=== PATIENT | female | born 1985 | race Caucasian/White ===

== ENCOUNTER → 2017-06-30 | Outpatient (CLI) | payer OTHER ==
[~2017-06-30] MED LIST: NIFE20CA PO
--- NOTE | 2017-06-30 16:50 | REP ---
LUMBAR SPINE, THREE VIEWS: HISTORY: Contusion. There is no acute fracture or subluxation. The L4-5 intervertebral disc is decreased in height consistent with disc degeneration. IMPRESSION:Degenerative change as described above. Signed by Carmelo Moulton MD 06/30/2017 04:59 P
--- NOTE | 2017-06-30 16:51 | REP ---
UNILATERAL RIGHT RIBS, PA CHEST: HISTORY: Contusion. COMPARISON: 08/16/2012 The lungs are clear. The heart is normal in size. The pulmonary vasculature is normal in appearance. The bony structure is intact. IMPRESSION: No acute disease. Signed by Carmelo Moulton MD 06/30/2017 04:59 P
== END ==
LOC: M WUC 14:58
PROVIDERS: ATTEND Physician Assistant
DX: S20.211A Contusion of right front wall of thorax, initial encounter (principal); X58.XXXA Exposure to other specified factors, initial encounter; Y93.9 Activity, unspecified; Y92.9 Unspecified place or not applicable; Y99.8 Other external cause status

== ENCOUNTER 2017-08-12 04:00 | Inpatient (IN) | payer OTHER ==
[2017-08-12] VITALS (7 sets, daily range): BP systolic 92–135; BP diastolic 58–91
[~2017-08-12] VITALS: Ht 160 cm; Wt 91.1 kg
[2017-08-12] MEDS ORDERED: LISI10TA4 PO (04:09)
[2017-08-12] MEDS ORDERED: NS 1,000 ML IV ONE ×2 (04:15→05:00)
[2017-08-12 04:21] LABS: BASO % 0.1 % (0.0-1.0); EOS # 0.1 10^3/uL (0.0-0.50); EOS % 0.5 % (0.0-3.0); IMMATURE GRANULOCYTE % 0.5 % (0-0); LYMPH # 0.4 10^3/uL (1.5-4.5); LYMPH % 3.8 % (24.0-44.0); MEAN CORPUSCULAR HEMOGLOBIN 29.5 pg (27.0-33.0); MEAN CORPUSCULAR VOLUME 86.6 fl (80.0-96.0); MONO # 0.5 10^3/uL (0.0-0.8); MONO % 5.5 % (0.0-5.0); NEUTROPHILS # 8.5 10^3/uL (1.8-7.7); NEUTROPHILS % 89.6 % (36.0-66.0); PLATELET COUNT, AUTOMATED 196 10^3/uL (150-450); RED CELL DISTRIBUTION WIDTH 12.7 % (11.5-14.5); WHITE BLOOD COUNT 9.5 10^3/uL (4.0-10.0)
[2017-08-12 04:48] LABS: CONTROL LINE HCG INT CTR LINE PRESENT
[2017-08-12 04:57] LABS: ALBUMIN 3.1 GM/DL (3.2-5.2); ALBUMIN/GLOBULIN RATIO 0.67 (1.00-1.93); ALKALINE PHOSPHATASE 79 U/L (45-117); ALT/SGPT 26 U/L (12-78); ANION GAP 11 MEQ/L (8-16); AST/SGOT 16 U/L (7-37); BILIRUBIN,DIRECT < 0.1 MG/DL (0.0-0.2); BILIRUBIN,TOTAL 0.3 MG/DL (0.2-1.0); BLOOD UREA NITROGEN 17 MG/DL (7-18); CARBON DIOXIDE LEVEL 19 MEQ/L (21-32); CHLORIDE LEVEL 111 MEQ/L (98-107); CREATININE FOR GFR 1.15 MG/DL (0.55-1.02); GLOMERULAR FILTRATION RATE 57.5 (>60); GLUCOSE, FASTING 191 MG/DL (70-105); POTASSIUM SERUM 3.6 MEQ/L (3.5-5.1); SODIUM LEVEL 141 MEQ/L (136-145); TOTAL PROTEIN 7.7 GM/DL (6.4-8.2)
[2017-08-12] MEDS ORDERED: METOCLOPRAMIDE INJ 10MG/2ML VIAL (J2765) IV ONE (05:00)
[2017-08-12] MEDS ORDERED: MORPHINE 2 MG/ML 1ML SYRINGE IV ONE (05:15)
[2017-08-12 05:36] LABS: INR 0.91
[2017-08-12] MEDS ORDERED: STRA10CA PO (05:48)
[2017-08-12] MEDS ORDERED: IMIPENEM/CILASTATIN 500 MG in D5W MINI-BAG PLUS 100 ML IV ONE (06:00)
[2017-08-12] MEDS ORDERED: metroNIDAZOLE 750 MG in APPROPRIATE DILUENT 1 EA IV ONE (06:00)
[2017-08-12] MEDS ORDERED: MORPHINE 2 MG/ML 1ML SYRINGE IV PRN (06:15)
[2017-08-12] MEDS ORDERED: ISOVUE-370 76% 100ML VIAL (Q9967) As Ordered ONE (06:48)
--- NOTE | 2017-08-12 07:09 | HPE ---
DATE OF ADMISSION: 08/12/2017 The patient, Kasey Negron, is a 32-year-old female. Patient comes in with a chief complaint of abdominal pain and severe diarrhea. Patient with a previous medial history of Casper-Romberg syndrome. Patient also with hypertension on lisinopril. Will be holding lisinopril at this time. The patient comes in with complaint of severe abdominal pain and diarrhea beginning Monday at about 12 as it became Monday morning. Patient notes that she did have hamburgers for dinner. The patient did have one sick contact. Her daughter also had some abdominal pain and diarrhea, but nothing on the magnitude of what the patient is having right now. The patient states that she has been having constant diarrhea, abdominal pain 10/10, nausea, vomiting. As per ED sign off she was incontinent in the ED and has been cleaned up since then with clearly bloody stools. Hemoglobin and hematocrit were found to be extremely low, patient being typed and screened, getting fluid and will get packed cells. REVIEW OF SYSTEMS: Patient without any other acute complaints other than what was noted in the history of present illness. ALLERGIES: Patient with no known drug allergies. Patient with no known significant family history. Patient does not smoke, drink or use drugs. Patient does not engage in anal sex and has one partner only. Patient's physical exam, see addendum. PHYSICAL EXAMINATION: The patient was in extreme discomfort when I came in to see her. The patient was alert and oriented times three, in petal position secondary to discomfort. The patient's temperature was 97.5, pulse 111, respiratory rate 20, blood pressure 109/70, pulse oximetry was 97 on room air. The patient is orthostatics positive from lying to sitting, as per nursing staff. The patient is alert and oriented times three. Patient with good inspiratory and expiratory effort. S1, S2 with tachycardia. ENT exam shows discolored tongue, brownish green in color. Extraocular muscles intact. Pupils equal, round and reactive to light and accommodation. Grossly normal hearing. The patient's head is normocephalic, however there is asymmetry of the face consistent with Casper-Romberg syndrome. The patient's cranial nerve II-XII cannot be done fully, patient is in extreme discomfort. Abdomen is tender to palpation superficially on all quadrants. Patient even tender on her abdomen with palpation of the flanks. Patient with good strength, 5/5 in all four major extremities. No meningeal signs present. ASSESSMENT/PLAN: Patient is a 32-year-old female with what appears to be infectious diarrhea secondary to unknown cause. Patient meeting severe sepsis criteria. Patient also with what appears to be severe GI hemorrhage. IV antibiotics began in the ED Flagyl and imipenem, will continue that. Patient typed, screened and crossed, 2 units ordered. Patient to be transfused. Patient to be sent to the ICU. Patient to go to CT for exam. Complete gastrointestinal (GI) panel sent. Continue IV fluids. Pain control with morphine. Deep vein thrombosis (DVT) prophylaxis with IPCs. GI prophylaxis with IV proton pump inhibitors (PPI) at this time. GI to be contacted for surgery based on CT results and GI panel. Given the severe nature of the patient's symptoms, I believe the patient most likely to be here for greater than two midnights. I first saw the patient 08/12/2017.
--- NOTE | 2017-08-12 08:00 | REPUSA ---
CLINICAL HISTORY: Abdominal pain. TECHNIQUE: Multiple axial, sagittal and coronal CT images were obtained through the abdomen and pelvi s after administration of intravenous contrast material. COMMENTS: Fluid filled bowels. The liver is of uniform attenuation without mass or defect. There is no intra or extrahepatic biliary ductal dilatation. The spleen is normal. The gallbladder is within normal limits. The pancreas is of normal contour and attenuation characteristics. There is no evidence of adrenal mass. Both kidneys demonstrate prompt and equal nephrograms. The kidneys are normal in size, shape and conf iguration. There is no evidence of renal or ureteral mass. No renal or ureteral calculi are identifie d. There is no hydroureter or hydronephrosis. No evidence for appendicitis. There is no bowel wall thickening. No evidence for small or large claudia l obstruction. There is no evidence of abdominal ascites or lymphadenopathy. There is no evidence of intrinsic or extrinsic bladder mass. There is no pelvic ascites or lymphadeno reginaldo. Images of the lung bases show no evidence of pleural or parenchymal mass. There are no pleural effusi ons. The bony structures are free of lytic or blastic lesions. Multilevel degenerative changes are seen in volving the thoracolumbar spine. Scattered calcifications are seen involving the aorta and major bran ches compatible with atherosclerosis. IMPRESSION: Fluid filled bowels. Enteritis/ileus. Uncomplicated diverticulosis. Thank you for your kind referral of this patient.
[2017-08-12] MEDS ORDERED: LISINOPRIL 10 MG TAB PO SCH (09:00)
[2017-08-12] MEDS: PANTOPRAZOLE 40MG INJ (PROTONIX) (C9113) IV SCH (09:52)
[2017-08-12] MEDS ORDERED: ACETAMINOPHEN TAB 650MG DOSE (2X325MG) PO SCH (10:35)
--- NOTE | 2017-08-12 10:52 | IPNPDOC ---
Subjective Date Seen The patient was seen on 08/12/17. Subjective Chief Complaint/HPI The patient is a 32-year-old female admitted with a reason for visit of Acute Hemorrhagic Enterocolitis. General: Reports: Fatigue, Malaise, Denies: Chills, Night Sweats, Normal Appetite Constitutional: Reports: Weakness, Fatigue, Lethargy, Denies: Chills, Fever, Malaise, Night Sweats, Weight Loss Eyes: Denies: Pain ENT: Denies: Head Aches Skin: Denies: Rash, Lesions, Jaundice, Bruising, Itching, Dry, Breakdown Pulmonary: Denies: Dyspnea, Cough Cardiovascular: Reports: Lt Headedness, Denies: Chest Pain, Palpitations, Orthopnea, Paroxysmal Noc. Dyspnea, Edema Gastrointestinal: Reports: Abdominal Pain, Denies: Nausea, Vomiting, Diarrhea, Constipation, Melena, Hematochezia Genitourinary: Denies: Dysuria, Frequency, Incontinence Hematologic: Denies: Bruising Neurological: Reports: Weakness, Denies: Numbness, Incoordination, Change in speech, Confusion Psych: Reports: Mood Normal Objective Physical Examination General Exam: Positive: Alert, Cooperative, Mild Distress Eye Exam: Positive: Conjunctiva & lids normal, EOMI, Negative: Sclera icteric ENT Exam: Positive: Mucous membr. moist/pink, Pharynx Normal, Nares Patent Neck Exam: Positive: Supple Chest Exam: Positive: Clear to auscultation, Normal air movement, Negative: Rales, Rhonchi, Wheezing Heart Exam: Positive: Rate Normal, Normal S1, Normal S2, Negative: Tachycardic, Bradycardic, Gallops, Murmurs, Rubs Telemetry: Positive: No significant arrhythmia Abdomen Exam: Positive: Normal bowel sounds, Soft, Tenderness (RLQ), Negative: Hepatospenomegaly Extremity Exam: Positive: Normal pulses, Negative: Clubbing, Edema, Tenderness, Swelling Neuro Exam: Positive: Normal Speech Psych Exam: Positive: Mental status NL Assessment /Plan Assessment Assessment and Plan: This is a 32-year-old previously well female who presented to the emergency department with uncontrollable nausea, vomiting, diarrhea and diffuse abdominal pain. 1. Abdominal pain -CT abdomen and pelvis showed fluid-filled bowels, enteritis/ileus helicis. -Patient did receive morphine for the pain this morning, states tylenol would be better for her as she takes this for her menstrual cramps at home, this is reasonable and will schedule Tylenol 650 mg PO QD. The pt thinks her abdomen discomfort may be from her menstrual cycle, which just started right before she presented to the hospital. Her CT did show some enteritis and diverticulosis, which also could account for the discomfort. -She did have a hamburger last night before presentation, and her daughters also had nausea and a "stomach bug", will send GI panel along with studies to evaluate for shiga and e.coli -On physical exam she did not have much abdominal tenderness or discomfort, some minimal discomfort in the right lower quadrant with deep palpitation, the patient thinks that this could also be menstrual cramps. -The patient has has one bowel movement today of which occult blood was positive , it was noted to be soft - she has since stopped vomiting since presentation, states her nausea has been improved since receiving Zofran -She is currently receiving 1 unit of packed red blood cells, will repeat H&H one hour after first transfusion, she will receive a second unit of blood and repeat H&H one hour after this transfusion. -Patient does seem pale on physical exam however upon questioning she states that she is "" always very pale "" and that this is just her "" genetics "" -She does state that she is a bit lightheaded upon standing, this usually resolves within a few seconds. Can perform orthostatics. -Blood pressure stable at 135/91, patient is mildly tachycardic at 114 -The patient did reveal that she started her menstrual cycle last night after her nausea and vomiting began, she states that she "" has very heavy periods especially in the beginning of the cycle "", she usually saturates 5 pads per day. -10.6 was her hemoglobin in 2013 when she was last seen at this hospital, patient states her last h/h was 13/40 in April 2017, thus she is not near her baseline H/H at 8.6/25.3 -At this point in time a GI bleed has not been ruled out-spoke to GI fashion consultant sales who suggested beginning ciprofloxacin and metronidazole, she does not need additional EGD nor colonoscopy at this time, norovirus can account for blood from GI tract. -she is receiving 2 units of blood, will trend H&H, improved to 14.4/43 s/p two units. trend q6h. -vital signs appear stable at this point in time albeit slight tachycardia -We'll continue to monitor for active signs of bleeding -less likely enterohemorrhagic e. coli at this point, symptoms usually develop days after consumption of infectious meat., the patients started hours later. Also, treatment for this is supportive care. Pt will be transferred from ICU to PCU. -C/w IV protonix 2. Nausea and vomiting -It appears that this is now very well controlled with PO zofran, will c/w this regime 3. HTN -this is well controlled, agreeable to hold lisinopril at this time - 4. ADHD -c/w home atomoxetine Plan/VTE VTE Prophylaxis Ordered?: Yes VS, I&O, 24H, Fishbone Vital Signs/I&O Vital Signs Date Time Temp Pulse Resp B/P (MAP) Pulse Ox O2 Delivery O2 Flow Rate FiO2 08/12/17 09:45 100.2 98 17 135/91 (106) 96 Room Air I&O- Last 24 Hours up to 6 AM 08/13/17 06:00 Intake Total 2100 ml Output Total 500 ml Balance 1600 ml Laboratory Data 24H LABS Laboratory Tests 2 08/12/17 04:15: Immature Granulocyte % (Auto) 0.5H, White Blood Count 9.5, Red Blood Count 2.92L , Hemoglobin 8.6L, Hematocrit 25.3L, Mean Corpuscular Volume 86.6, Mean Corpuscular Hemoglobin 29.5, Mean Corpuscular Hemoglobin Concent 34.0, Red Cell Distribution Width 12.7, Platelet Count 196, Neutrophils (%) (Auto) 89.6H, Lymphocytes (%) (Auto) 3.8L, Monocytes (%) (Auto) 5.5H, Eosinophils (%) (Auto) 0.5, Basophils (%) (Auto) 0.1, Neutrophils # (Auto) 8.5H, Lymphocytes # (Auto) 0.4L, Monocytes # (Auto) 0.5, Eosinophils # (Auto) 0.1, Basophils # (Auto) 0.0, Immature Granulocyte # (Auto) 0.1H, Nucleated Red Blood Cells % (auto) 0.0, Anion Gap 11, Glomerular Filtration Rate 57.5L, Calcium Level 9.0, Aspartate Amino Transf (AST/SGOT) 16, Alanine Aminotransferase (ALT/SGPT) 26, Alkaline Phosphatase 79, Total Bilirubin 0.3, Direct Bilirubin < 0.1, Total Protein 7.7, Albumin 3.1L, Albumin/Globulin Ratio 0.67L, Lipase 290, Human Chorionic Gonadotropin, Qual NEGATIVE 08/12/17 05:19: Prothrombin Time 12.3L, Prothromb Time International Ratio 0.91, Activated Partial Thromboplast Time 25.9L, Lactic Acid Level 3.1*H 08/12/17 09:43: Lactic Acid Followup at 4 Hours 2.8*H CBC/BMP Laboratory Tests 08/12/17 04:15 Red Blood Count 2.92 L, Mean Corpuscular Volume 86.6, Mean Corpuscular Hemoglobin 29.5, Mean Corpuscular Hemoglobin Concent 34.0, Red Cell Distribution Width 12.7, Neutrophils (%) (Auto) 89.6 H, Lymphocytes (%) (Auto) 3.8 L, Monocytes (%) (Auto) 5.5 H, Eosinophils (%) (Auto) 0.5, Basophils (%) ( Auto) 0.1, Neutrophils # (Auto) 8.5 H, Lymphocytes # (Auto) 0.4 L, Monocytes # ( Auto) 0.5, Eosinophils # (Auto) 0.1, Basophils # (Auto) 0.0 Microbiology Microbiology 08/12/17 Blood Culture, Received Pending 08/12/17 Blood Culture, Received Pending 08/12/17 Stool Occult Blood (ASIYA) - Final, Complete 08/12/17 Gastrointestinal Tract Panel (PCR) - Final, Complete Norovirus GME ATTESTATION GME ATTESTATION My faculty preceptor for this patient encounter was physically present during the encounter and was fully available. All aspects of the patient interview, examination, medical decision making process, and medical care plan development were reviewed and approved by the faculty preceptor. The faculty preceptor is aware and concurs with the plan as stated in the body of this note and will attest to such by his/her cosignature. DANTE ALANIS DO Aug 12, 2017 10:52
[2017-08-12] MEDS: CIPROFLOXACIN 400 MG in APPROPRIATE DILUENT 1 EA IV SCH (14:41)
[2017-08-12] MEDS: NS 1,000 ML IV SCH ×3 (15:10→22:30)
[2017-08-12] MEDS: metroNIDAZOLE 500 MG in APPROPRIATE DILUENT 1 EA IV SCH (19:36)
[2017-08-12] MEDS: ONDANSETRON 4 MG TAB (S0181) PO PRN (19:50)
[2017-08-13] VITALS (7 sets, daily range): BP systolic 121–182; BP diastolic 71–106
[2017-08-13] MEDS: CIPROFLOXACIN 400 MG in APPROPRIATE DILUENT 1 EA IV SCH ×2 (01:38→14:23)
[2017-08-13] MEDS: NS 1,000 ML IV SCH ×3 (02:29→16:29)
[2017-08-13] MEDS: metroNIDAZOLE 500 MG in APPROPRIATE DILUENT 1 EA IV SCH ×3 (04:15→19:57)
[2017-08-13 04:38] LABS: MEAN CORPUSCULAR HEMOGLOBIN 28.9 pg (27.0-33.0); MEAN CORPUSCULAR HGB CONC 33.4 g/dl (32.0-36.5); MEAN CORPUSCULAR VOLUME 86.4 fl (80.0-96.0); PLATELET COUNT, AUTOMATED 218 10^3/uL (150-450); RED CELL DISTRIBUTION WIDTH 13.6 % (11.5-14.5); WHITE BLOOD COUNT 8.1 10^3/uL (4.0-10.0)
[2017-08-13 04:57] LABS: ANION GAP 4 MEQ/L (8-16); BLOOD UREA NITROGEN 11 MG/DL (7-18); CALCIUM LEVEL 6.8 MG/DL (8.5-10.1); CARBON DIOXIDE LEVEL 24 MEQ/L (21-32); CHLORIDE LEVEL 115 MEQ/L (98-107); CREATININE FOR GFR 0.75 MG/DL (0.55-1.02); GLOMERULAR FILTRATION RATE > 60.0 (>60); GLUCOSE, FASTING 106 MG/DL (70-105); POTASSIUM SERUM 3.3 MEQ/L (3.5-5.1); SODIUM LEVEL 143 MEQ/L (136-145)
[2017-08-13] MEDS ORDERED: POTASSIUM CHLORIDE 10 MEQ SR TABLET PO ONE (08:15)
[2017-08-13] MEDS: PANTOPRAZOLE 40MG INJ (PROTONIX) (C9113) IV SCH (08:17)
[2017-08-13] MEDS ORDERED: STRATTERA PO SCH (09:00)
[2017-08-13] MEDS: ACETAMINOPHEN TAB 650MG DOSE (2X325MG) PO PRN ×2 (09:34→16:29)
[2017-08-13] MEDS ORDERED: ACETAMINOPHEN TAB 650MG DOSE (2X325MG) PO PRN (10:35)
[2017-08-13 12:12] LABS: MEAN CORPUSCULAR HEMOGLOBIN 29.4 pg (27.0-33.0); MEAN CORPUSCULAR HGB CONC 33.4 g/dl (32.0-36.5); MEAN CORPUSCULAR VOLUME 87.9 fl (80.0-96.0); PLATELET COUNT, AUTOMATED 207 10^3/uL (150-450); RED CELL DISTRIBUTION WIDTH 13.7 % (11.5-14.5); WHITE BLOOD COUNT 7.8 10^3/uL (4.0-10.0)
[2017-08-13 14:21] LABS: FERRITIN 183 NG/ML (8-252); PERCENT SATURATION 9.7 % (13.2-45.0); TOTAL IRON BINDING CAPACITY 279 UG/DL (250-450)
--- NOTE | 2017-08-13 17:28 | IPN ---
DATE: 08/13/2017 SUBJECTIVE: The patient is seen and examined in the room today. The patient continued to complain about frequent diarrhea. She does not feel that the frequency and the severity have improved, but clinically the patient stated she is improving. Stated that the abdominal pain is improving. Nausea and vomiting are also improving. OBJECTIVE: VITAL SIGNS: Temperature is 99, pulse is 84, respiratory rate 17, blood pressure 136/85, pulse oximetry is 98% in room air. GENERAL: No sign of acute distress, alert and oriented times three. HEENT: Normocephalic, atraumatic. Extraocular motor grossly intact. CARDIOVASCULAR: Positive S1, S2, regular rate. LUNGS: Clear to auscultation bilaterally. ABDOMEN: Soft, mild discomfort to palpation. EXTREMITIES: No edema. No sign of cyanosis. LABORATORY DATA: WBC is 7.8, hemoglobin 12.1, hematocrit 36.2, platelet count is 207. Sodium is 143, potassium 3.3, chloride 115, carbon dioxide 24, BUN is 11, creatinine is 0.75, GFR greater than 60, fasting glucose 106, calcium is 6.8, iron is 27, TIBC is 279, ferritin is 183, lactate dehydrogenase is 192. ASSESSMENT AND PLAN: 1. Acute gastrointestinal (GI) bleed/noroviral infection. The patient has positive hemoccult. On the date of transfusion, the patient was found to have a hemoglobin of 8.6 which is not her baseline. The most recent blood test was performed in April of 2017 and hemoglobin was 13 with a hematocrit of 40. The patient received two packed red blood cell transfusions on 08/12/2017. Since then, we have been following the patient's hemoglobin and hematocrit. There is some minor fluctuation of the hemoglobin and hematocrit. However, there is no significant drop at this moment. The patient continues to have stable vital signs. The patient does have a concurrent menstrual period, the first day started on 08/12/2017, and based according to her baseline, usually on the first day, her period will be very heavy. GI panel was performed. The patient was positive for norovirus. Case discussed with GI specialist, Dr. Melendez. The patient's diet is advanced and the patient is started on the ciprofloxacin and Flagyl. The patient continues to receive as-needed Zofran to control the nausea and vomiting. Since admission, the patient's clinical picture has continued to improved and the patient does not require Zofran as frequently as she used to. 2. Hypertension. Blood pressure is in the satisfactory range. 3. Attention deficit hyperactivity disorder (ADHD). Previously, the patient was on Lexapro for ADHD. However, the effect was suboptimal. Therefore, the patient was recently weaned off the Lexapro. The patient has been working with an outpatient provider and plans to restart a new medication next week. 4. Deep vein thrombosis (DVT) prophylaxis. Due to possible GI bleed, the patient is not on anticoagulation. The patient has thromboembolic-deterrent stockings (TEDS) and sequential compression device.
[2017-08-13 18:28] LABS: MEAN CORPUSCULAR HEMOGLOBIN 29.9 pg (27.0-33.0); MEAN CORPUSCULAR HGB CONC 34.5 g/dl (32.0-36.5); MEAN CORPUSCULAR VOLUME 86.7 fl (80.0-96.0); PLATELET COUNT, AUTOMATED 225 10^3/uL (150-450); RED CELL DISTRIBUTION WIDTH 13.6 % (11.5-14.5); WHITE BLOOD COUNT 9.4 10^3/uL (4.0-10.0)
[2017-08-13] MEDS: ONDANSETRON 4 MG TAB (S0181) PO PRN (19:51)
[2017-08-13 23:58] LABS: MEAN CORPUSCULAR HEMOGLOBIN 29.4 pg (27.0-33.0); MEAN CORPUSCULAR HGB CONC 33.6 g/dl (32.0-36.5); MEAN CORPUSCULAR VOLUME 87.6 fl (80.0-96.0); PLATELET COUNT, AUTOMATED 196 10^3/uL (150-450); RED CELL DISTRIBUTION WIDTH 13.7 % (11.5-14.5); WHITE BLOOD COUNT 7.9 10^3/uL (4.0-10.0)
[2017-08-14] MEDS: ACETAMINOPHEN TAB 650MG DOSE (2X325MG) PO PRN ×2 (00:14→10:03)
[2017-08-14] MEDS: ONDANSETRON 4 MG TAB (S0181) PO PRN (02:02)
[2017-08-14] MEDS: NS 1,000 ML IV SCH (02:06)
[2017-08-14] MEDS: CIPROFLOXACIN 400 MG in APPROPRIATE DILUENT 1 EA IV SCH ×2 (02:07→13:43)
[2017-08-14] MEDS ORDERED: FAMOTIDINE 20 MG TAB PO ONE (03:00)
[2017-08-14 04:00] VITALS: BP 159/103
[2017-08-14] MEDS: metroNIDAZOLE 500 MG in APPROPRIATE DILUENT 1 EA IV SCH ×2 (04:41→12:18)
[2017-08-14 05:22] LABS: MEAN CORPUSCULAR HEMOGLOBIN 28.9 pg (27.0-33.0); MEAN CORPUSCULAR HGB CONC 33.5 g/dl (32.0-36.5); MEAN CORPUSCULAR VOLUME 86.3 fl (80.0-96.0); PLATELET COUNT, AUTOMATED 211 10^3/uL (150-450); RED CELL DISTRIBUTION WIDTH 13.6 % (11.5-14.5); WHITE BLOOD COUNT 7.6 10^3/uL (4.0-10.0)
[2017-08-14 05:38] LABS: ANION GAP 9 MEQ/L (8-16); BLOOD UREA NITROGEN 6 MG/DL (7-18); CALCIUM LEVEL 6.8 MG/DL (8.5-10.1); CARBON DIOXIDE LEVEL 22 MEQ/L (21-32); CHLORIDE LEVEL 114 MEQ/L (98-107); CREATININE FOR GFR 0.67 MG/DL (0.55-1.02); GLOMERULAR FILTRATION RATE > 60.0 (>60); GLUCOSE, FASTING 100 MG/DL (70-105); POTASSIUM SERUM 3.3 MEQ/L (3.5-5.1); SODIUM LEVEL 145 MEQ/L (136-145)
[2017-08-14 06:00] VITALS: BP 135/82
[2017-08-14 08:00] VITALS: BP 148/76
[2017-08-14] MEDS ORDERED: POTASSIUM CHLORIDE 10 MEQ SR TABLET PO ONE (08:00)
[2017-08-14] MEDS: PANTOPRAZOLE 40MG INJ (PROTONIX) (C9113) IV SCH (08:58)
[2017-08-14] MEDS: METOCLOPRAMIDE INJ 10MG/2ML VIAL (J2765) IV PRN ×3 (09:06→21:45)
[2017-08-14 12:10] LABS: MEAN CORPUSCULAR HEMOGLOBIN 29.2 pg (27.0-33.0); MEAN CORPUSCULAR HGB CONC 33.9 g/dl (32.0-36.5); MEAN CORPUSCULAR VOLUME 86.2 fl (80.0-96.0); PLATELET COUNT, AUTOMATED 197 10^3/uL (150-450); RED CELL DISTRIBUTION WIDTH 13.7 % (11.5-14.5); WHITE BLOOD COUNT 6.3 10^3/uL (4.0-10.0)
--- NOTE | 2017-08-14 12:13 | CR.PDOC ---
[facility] Consultation Consultation DATE OF CONSULTATION: Aug 13, 2017 at 04:00PM Primary physician/ hospitalist: Dr. Cristofer Lux. 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 Patient was admitted for further management for severe acute diarrhea and dehydration and labs showing anemia. GI consulted for the same. Patient reports the symptoms started acutely, with severe diffuse abdominal pain, vomiting and diarrhea. Patient also started having menstrual bleeding at the same time. IN ER it was unclear if patient was having blood in stools or menstrual bleeding but her labs showed low Hemoglobin so she received 2 units of PRBC. HB increase more than expected but repeat values showed stable hemoglobin at around 12. Currently patient reports her nausea , vomiting and abdominal pain improved but continues to have mild diarrhea but no blood. OFF note: patient reports sick contacts- both her children had Noro viral diarrhea. Pertinent negative GI symptoms: Patient denies early satiety or unintentional weight loss. No history of hematemesis, melena. Patient reports regular bowel movements. Review of Systems: GI: as stated above CVS: No chest pain, No palpitations, No leg swelling. RS: No Shortness of breath, No Wheezing, no cough SURGERY SCHEDULING COORDINATOR: No dizziness, No motor weakness, No sensory problems Hematology: No bruising, No gum bleeding, Musculoskeletal: No joint pain, ambulating well. Skin: No rash : No hematuria, No burning sensation of the urine ENT: No ear discharge/ pain, No dysphagia. Eyes: No photophobia. Home medications: reviewed. Antithrombotic agents None Medical h/o: As above. Surgical h/o: None on abdomen. Social h/o: Alcohol Denies , smoking Denies , IVDA/ drugs Denies . Family h/o of GI cancers - None Prior Endoscopies: None Prior GI evaluation: None in [facility]. Exam: Vitals: reviewed General: Alert and oriented x 3, not in distress HEENT: NO pallor, no icterus. Normal oropharynx, NO cervical lymph nodes. Chest: symmetric with bilateral clear air entry, CVS: S1, S2 heard, normal, no murmurs . Abdomen: non-distended, no surgical scars, soft, non-tender, no palpable masses , normal bowel sounds heard. Rectal exam: Not done as patient had already had twice examined in this admission by floor team. And patient reports no blood currently. Extremities: no pedal edema, pulses palpable. SURGERY SCHEDULING COORDINATOR: no focal motor or sensory deficits. Moves all extremities Skin: no rash. Labs: reviewed. Noted iron deficiency anemia. Impression: - Acute onset nausea, vomiting and diarrhea and Fever requiring hospitalization. And possible blood in stool initially ( unclear based on history). Recommendations: - Patient educated about the test results, possible differential diagnoses and All questions answered. - Would benefit from short course of Antibiotics for 3- 5 days. - Adequate IV hydration. - Elective work up for RANDY. - Upon discharge please give follow up appointmentin GI clinic. ( call [phone] for GI clinic appointment).. Plan of care discussed with patient and primary team. Patient verbalized understanding and agreed with the plan. Allergies Coded Allergies: Hydroxychloroquine (Verified Allergy, Mild, RASH, 08/12/17) NSAIDs (Verified Adverse Reaction, Intermediate, IGA NEPHROPATHY, 08/12/17 ) Home Medications Scheduled Atomoxetine Hydrochloride (Strattera) 10 Mg Cap, 10 MG PO DAILY, (Reported) Lisinopril (Lisinopril) 10 Mg Tab, 10 MG PO DAILY, (Reported) CRYSTAL LUNA MD Aug 13, 2017 17:01
[2017-08-14 12:16] LABS: FOLATE 9.2 NG/ML (>5.4); VITAMIN B12 LEVEL > 2000 PG/ML (247-911)
[2017-08-14 13:10] VITALS: BP 166/100
[2017-08-14] MEDS: LISINOPRIL 5 MG TAB PO SCH (14:22)
--- NOTE | 2017-08-14 15:58 | IPNPDOC ---
Text Note Date of Service The patient was seen on 08/14/17. NOTE SUBJECTIVE: The patient is seen and examined in the room today. The patient continued to complain about frequent diarrhea. She states she has recurrence of severe nausea and vomiting. PO zofran is not working for her. She notices increase facial swelling. OBJECTIVE: VITAL SIGNS: Listed below GENERAL: No sign of acute distress, alert and oriented times three. HEENT: Increased generalized swelling of face. Extraocular motor grossly intact. CARDIOVASCULAR: Positive S1, S2, regular rate. LUNGS: Clear to auscultation bilaterally. ABDOMEN: Soft, mild discomfort to palpation. EXTREMITIES: No edema. No sign of cyanosis. LABORATORY DATA: Listed below ASSESSMENT AND PLAN: 1. Noroviral infection. Continue having severe diarrhea. Has recurrence of nausea and vomiting. switch N/V medication to PRN IV zofran and reglan. Continue supportive care. Per GI recommendation, will finish 3-5 days of antibiotic treatment (cipro and flagyl). 2. Anemia. Initially acute GI bleed was suspected. The most recent blood test was performed in April of 2017 and hemoglobin was 13 with a hematocrit of 40. The patient has positive hemoccult. On the date of transfusion, the patient was found to have a hemoglobin of 8.6 which is not her baseline. The patient received two packed red blood cell transfusions on 08/12/2017. Since then, we have been following the patient's hemoglobin and hematocrit. There is some minor fluctuation of the hemoglobin and hematocrit. However, there is no significant drop at this moment. The patient continues to have stable vital signs. The patient does have a concurrent menstrual period, the first day started on 08/12/2017, and based according to her baseline, usually on the first day, her period will be very heavy. The patient's diet is advanced. 2. Hypertension. Blood pressure is in the satisfactory range. 3. Attention deficit hyperactivity disorder (ADHD). Previously, the patient was on Lexapro for ADHD. However, the effect was suboptimal. Therefore, the patient was recently weaned off the Lexapro. The patient has been working with an outpatient provider and plans to restart a new medication next week. 4. Deep vein thrombosis (DVT) prophylaxis. Due to possible GI bleed, the patient is not on anticoagulation. The patient has thromboembolic-deterrent stockings (TEDS) and sequential compression device. VS,[place], I+O VS, Fishbone, I+O Laboratory Tests 08/13/17 18:16 Red Blood Count 4.35, Mean Corpuscular Volume 86.7, Mean Corpuscular Hemoglobin 29.9, Mean Corpuscular Hemoglobin Concent 34.5, Red Cell Distribution Width 13.6 08/13/17 23:45 Red Blood Count 4.11, Mean Corpuscular Volume 87.6, Mean Corpuscular Hemoglobin 29.4, Mean Corpuscular Hemoglobin Concent 33.6, Red Cell Distribution Width 13.7 08/14/17 05:02 Red Blood Count 4.32, Mean Corpuscular Volume 86.3, Mean Corpuscular Hemoglobin 28.9, Mean Corpuscular Hemoglobin Concent 33.5, Red Cell Distribution Width 13.6 , Calcium Level 6.8 L 08/14/17 11:59 Red Blood Count 4.14, Mean Corpuscular Volume 86.2, Mean Corpuscular Hemoglobin 29.2, Mean Corpuscular Hemoglobin Concent 33.9, Red Cell Distribution Width 13.7 Vital Signs Date Time Temp Pulse Resp B/P (MAP) Pulse Ox O2 Delivery O2 Flow Rate FiO2 08/14/17 14:22 166/100 08/14/17 13:10 97.6 70 20 100 Room Air I&O- Last 24 Hours up to 6 AM 08/15/17 06:00 Intake Total 100 ml Output Total 200 ml Balance -100 ml ZEINAB RAMIREZ DO Aug 14, 2017 15:58
[2017-08-14 16:00] VITALS: BP 146/90
[2017-08-14 19:40] LABS: MEAN CORPUSCULAR HEMOGLOBIN 29.4 pg (27.0-33.0); MEAN CORPUSCULAR HGB CONC 33.6 g/dl (32.0-36.5); MEAN CORPUSCULAR VOLUME 87.5 fl (80.0-96.0); PLATELET COUNT, AUTOMATED 219 10^3/uL (150-450); RED CELL DISTRIBUTION WIDTH 13.6 % (11.5-14.5); WHITE BLOOD COUNT 7.2 10^3/uL (4.0-10.0)
[2017-08-14 20:00] VITALS: BP 160/98
[2017-08-14] MEDS: metroNIDAZOLE (FLAGYL) 500 MG TAB PO SCH (22:35)
[2017-08-15] VITALS: BP 145/98
[2017-08-15] MEDS: METOCLOPRAMIDE INJ 10MG/2ML VIAL (J2765) IV PRN ×3 (05:14→18:19)
[2017-08-15] MEDS ORDERED: CIPROFLOXACIN 500 MG TAB PO ONE (06:00)
[2017-08-15] MEDS: metroNIDAZOLE (FLAGYL) 500 MG TAB PO SCH ×2 (06:51→13:24)
[2017-08-15] MEDS: ACETAMINOPHEN TAB 650MG DOSE (2X325MG) PO PRN ×2 (06:57→18:26)
[2017-08-15 07:35] LABS: MEAN CORPUSCULAR HEMOGLOBIN 29.3 pg (27.0-33.0); MEAN CORPUSCULAR HGB CONC 34.1 g/dl (32.0-36.5); MEAN CORPUSCULAR VOLUME 85.9 fl (80.0-96.0); PLATELET COUNT, AUTOMATED 227 10^3/uL (150-450); RED CELL DISTRIBUTION WIDTH 13.6 % (11.5-14.5); WHITE BLOOD COUNT 8.8 10^3/uL (4.0-10.0)
[2017-08-15 07:47] LABS: ANION GAP 9 MEQ/L (8-16); BLOOD UREA NITROGEN 4 MG/DL (7-18); CALCIUM LEVEL 7.5 MG/DL (8.5-10.1); CARBON DIOXIDE LEVEL 22 MEQ/L (21-32); CHLORIDE LEVEL 112 MEQ/L (98-107); CREATININE FOR GFR 0.66 MG/DL (0.55-1.02); GLOMERULAR FILTRATION RATE > 60.0 (>60); GLUCOSE, FASTING 91 MG/DL (70-105); POTASSIUM SERUM 3.3 MEQ/L (3.5-5.1); SODIUM LEVEL 143 MEQ/L (136-145)
[2017-08-15 08:00] VITALS: BP 162/98
[2017-08-15] MEDS: LISINOPRIL 5 MG TAB PO SCH (08:38)
[2017-08-15] MEDS: PANTOPRAZOLE 40MG INJ (PROTONIX) (C9113) IV SCH (08:38)
[2017-08-15] MEDS ORDERED: POTASSIUM CHLORIDE 10 MEQ SR TABLET PO ONE (12:00)
[2017-08-15] MEDS: ONDANSETRON 4MG/2ML VIAL (J2405) IV PRN ×2 (15:37→21:44)
[2017-08-15 16:00] VITALS: BP 158/110
--- NOTE | 2017-08-15 18:35 | IPNPDOC ---
Text Note Date of Service The patient was seen on 08/15/17. NOTE SUBJECTIVE: The patient is seen and examined in the room today. The patient continued to complain about frequent diarrhea but the severity has shown some improvement. Continue having nausea and vomiting. Reglan is helping. OBJECTIVE: VITAL SIGNS: Listed below GENERAL: No sign of acute distress, alert and oriented times three. HEENT: Increased generalized swelling of face. Extraocular motor grossly intact. CARDIOVASCULAR: Positive S1, S2, regular rate. LUNGS: Clear to auscultation bilaterally. ABDOMEN: Soft, mild discomfort to palpation. EXTREMITIES: No edema. No sign of cyanosis. LABORATORY DATA: Listed below ASSESSMENT AND PLAN: 1. Noroviral infection. Continue having diarrhea. Has recurrence of nausea and vomiting. Reglan is helping her nausea and vomiting. Continue supportive care. Per GI recommendation, Patient has been on cipro and flagyl. Will dc antibiotic today. 2. Anemia. Initially acute GI bleed was suspected. The most recent blood test was performed in April of 2017 and hemoglobin was 13 with a hematocrit of 40. The patient has positive hemoccult. On the date of transfusion, the patient was found to have a hemoglobin of 8.6 which is not her baseline. The patient received two packed red blood cell transfusions on 08/12/2017. Since then, we have been following the patient's hemoglobin and hematocrit. There is some minor fluctuation of the hemoglobin and hematocrit. However, there is no significant drop at this moment. The patient continues to have stable vital signs. The patient does have a concurrent menstrual period, the first day started on 08/12/2017, and based according to her baseline, usually on the first day, her period will be very heavy. The patient's diet is advanced. 2. Hypertension. Blood pressure is in the satisfactory range. 3. Attention deficit hyperactivity disorder (ADHD). Previously, the patient was on Lexapro for ADHD. However, the effect was suboptimal. Therefore, the patient was recently weaned off the Lexapro. The patient has been working with an outpatient provider and plans to restart a new medication next week. 4. Deep vein thrombosis (DVT) prophylaxis. Due to possible GI bleed, the patient is not on anticoagulation. The patient has thromboembolic-deterrent stockings (TEDS) and sequential compression device. VS,Fishbone, I+O VS, Fishbone, I+O Laboratory Tests 08/15/17 07:23 Red Blood Count 4.54, Mean Corpuscular Volume 85.9, Mean Corpuscular Hemoglobin 29.3, Mean Corpuscular Hemoglobin Concent 34.1, Red Cell Distribution Width 13.6 , Calcium Level 7.5 L Vital Signs Date Time Temp Pulse Resp B/P (MAP) Pulse Ox O2 Delivery O2 Flow Rate FiO2 08/15/17 16:00 98.2 66 18 158/110 (126) 98 Room Air I&O- Last 24 Hours up to 6 AM 08/16/17 06:00 Intake Total 640 ml Output Total 1100 ml Balance -460 ml ZEINAB RAMIREZ DO Aug 15, 2017 18:35
[2017-08-15 20:00] VITALS: BP 168/110
[2017-08-15] MEDS ORDERED: LISINOPRIL 5 MG TAB PO ONE (21:30)
[2017-08-16] VITALS: BP 160/98
[2017-08-16] MEDS ORDERED: POTASSIUM CHLORIDE 10 MEQ SR TABLET PO ONE (01:00)
[2017-08-16] MEDS ORDERED: hydrALAZINE INJ 20 MG/ML VIAL IV ONE (01:00)
[2017-08-16] MEDS ORDERED: **hydrALAZINE** 10 MG TAB PO ONE (01:15)
[2017-08-16] MEDS: METOCLOPRAMIDE INJ 10MG/2ML VIAL (J2765) IV PRN ×2 (01:47→08:14)
[2017-08-16 03:26] VITALS: BP 137/90
[2017-08-16 07:54] LABS: ANION GAP 7 MEQ/L (8-16); BLOOD UREA NITROGEN 5 MG/DL (7-18); CALCIUM LEVEL 7.6 MG/DL (8.5-10.1); CARBON DIOXIDE LEVEL 24 MEQ/L (21-32); CHLORIDE LEVEL 113 MEQ/L (98-107); CREATININE FOR GFR 0.62 MG/DL (0.55-1.02); GLOMERULAR FILTRATION RATE > 60.0 (>60); GLUCOSE, FASTING 97 MG/DL (70-105); POTASSIUM SERUM 3.7 MEQ/L (3.5-5.1); SODIUM LEVEL 144 MEQ/L (136-145)
[2017-08-16 08:00] VITALS: BP 168/94
[2017-08-16] MEDS: PANTOPRAZOLE 40MG INJ (PROTONIX) (C9113) IV SCH (08:13)
[2017-08-16] MEDS: POTASSIUM CHLORIDE 10 MEQ SR TABLET PO SCH (08:48)
[2017-08-16] MEDS: ACETAMINOPHEN TAB 650MG DOSE (2X325MG) PO PRN (08:49)
[2017-08-16] MEDS: LISINOPRIL 5 MG TAB PO SCH (08:50)
[2017-08-16] MEDS: ONDANSETRON 4MG/2ML VIAL (J2405) IV PRN (12:50)
[2017-08-16] MEDS ORDERED: METOCLOPRAMIDE 5 MG TAB PO PRN (13:30)
[2017-08-16 16:00] VITALS: BP 166/94
--- NOTE | 2017-08-16 20:03 | IPNPDOC ---
Text Note Date of Service The patient was seen on 08/16/17. NOTE SUBJECTIVE: The patient is seen and examined in the room today. The patient continued to complain about frequent diarrhea but the severity has shown some improvement. Nausea and vomiting is under control. Tolerate her diet. OBJECTIVE: VITAL SIGNS: Listed below GENERAL: No sign of acute distress, alert and oriented times three. HEENT: Increased generalized swelling of face. Extraocular motor grossly intact. CARDIOVASCULAR: Positive S1, S2, regular rate. LUNGS: Clear to auscultation bilaterally. ABDOMEN: Soft, mild discomfort to palpation. EXTREMITIES: No edema. No sign of cyanosis. LABORATORY DATA: Listed below ASSESSMENT AND PLAN: 1. Noroviral infection. Continue having diarrhea. Has recurrence of nausea and vomiting. Reglan is helping her nausea and vomiting. Continue supportive care. Per GI recommendation, Patient was on cipro and flagyl. 2. Anemia. Initially acute GI bleed was suspected. The most recent blood test was performed in April of 2017 and hemoglobin was 13 with a hematocrit of 40. The patient has positive hemoccult. On the date of transfusion, the patient was found to have a hemoglobin of 8.6 which is not her baseline. The patient received two packed red blood cell transfusions on 08/12/2017. Since then, we have been following the patient's hemoglobin and hematocrit. There is some minor fluctuation of the hemoglobin and hematocrit. However, there is no significant drop at this moment. The patient continues to have stable vital signs. The patient does have a concurrent menstrual period, the first day started on 08/12/2017, and based according to her baseline, usually on the first day, her period will be very heavy. The patient's diet is advanced. 2. Hypertension. Blood pressure is not in good control. Continue adjusting BP med. 3. Attention deficit hyperactivity disorder (ADHD). Previously, the patient was on Lexapro for ADHD. However, the effect was suboptimal. Therefore, the patient was recently weaned off the Lexapro. The patient has been working with an outpatient provider and plans to restart a new medication next week. 4. Deep vein thrombosis (DVT) prophylaxis. Due to possible GI bleed, the patient is not on anticoagulation. The patient has thromboembolic-deterrent stockings (TEDS) and sequential compression device. VS,Fishbone, I+O VS, Fishbone, I+O Laboratory Tests 08/16/17 07:04 Calcium Level 7.6 L Vital Signs Date Time Temp Pulse Resp B/P (MAP) Pulse Ox O2 Delivery O2 Flow Rate FiO2 08/16/17 16:00 97.9 74 18 166/94 (118) 99 Room Air I&O- Last 24 Hours up to 6 AM 08/17/17 06:00 Intake Total 1780 ml Output Total 1560 ml Balance 220 ml ZEINAB RAMIREZ DO Aug 16, 2017 20:03
[2017-08-16 21:00] VITALS: BP 170/104
[2017-08-16] MEDS: ONDANSETRON 4 MG TAB (S0181) PO PRN (21:28)
[2017-08-16] MEDS: LISINOPRIL 20 MG TAB PO SCH (21:29)
[2017-08-16 23:00] VITALS: BP 165/95
[2017-08-17 06:00] VITALS: BP 155/104
[2017-08-17] MEDS: ACETAMINOPHEN TAB 650MG DOSE (2X325MG) PO PRN (06:02)
[2017-08-17 07:36] LABS: ANION GAP 7 MEQ/L (8-16); BLOOD UREA NITROGEN 6 MG/DL (7-18); CALCIUM LEVEL 7.4 MG/DL (8.5-10.1); CARBON DIOXIDE LEVEL 24 MEQ/L (21-32); CHLORIDE LEVEL 110 MEQ/L (98-107); CREATININE FOR GFR 0.69 MG/DL (0.55-1.02); GLOMERULAR FILTRATION RATE > 60.0 (>60); GLUCOSE, FASTING 102 MG/DL (70-105); POTASSIUM SERUM 3.6 MEQ/L (3.5-5.1); SODIUM LEVEL 141 MEQ/L (136-145)
[2017-08-17] MEDS: PANTOPRAZOLE 40MG INJ (PROTONIX) (C9113) IV SCH (09:00)
[2017-08-17 09:15] VITALS: BP 148/105
[2017-08-17 09:21] VITALS: BP 148/105
[2017-08-17] MEDS: LISINOPRIL 20 MG TAB PO SCH (09:21)
[2017-08-17] MEDS: POTASSIUM CHLORIDE 10 MEQ SR TABLET PO SCH (09:21)
[2017-08-17] MEDS ORDERED: ONDA4TAB5 PO (11:55)
[2017-08-17] MEDS ORDERED: LISI-538 PO (11:55)
[2017-08-17] MEDS ORDERED: K-TA10TA PO (11:55)
[2017-08-17] MEDS: ONDANSETRON 4 MG TAB (S0181) PO PRN (13:21)
== END 2017-08-17 15:10 | disposition home or self-care (01) | DRG 392 ==
LOC: M ED 04:00 → M ED INP 06:13 → M ICU 08:19 → M PCU 08-13 15:34 → M PED 08-14 12:49
PROVIDERS: ADMIT Internal Medicine; ATTEND Internal Medicine
PROC: 30233N1 Transfusion of Nonautologous Red Blood Cells into Peripheral Vein, Percutaneous Approach (ICD-10-PCS; principal; 2017-08-12)
DX: A08.11 Acute gastroenteropathy due to Norwalk agent (principal); I10 Essential (primary) hypertension; D64.9 Anemia, unspecified; F90.8 Attention-deficit hyperactivity disorder, other type; Z88.6 Allergy status to analgesic agent; Z88.8 Allergy status to other drugs, medicaments and biological substances; Z79.899 Other long term (current) drug therapy

== ENCOUNTER → 2017-10-05 | Outpatient (REF) | payer OTHER ==
[2017-10-06 14:29] LABS: IRON (FE) 57 UG/DL (50-170); PERCENT SATURATION 19.4 % (13.2-45.0); TOTAL IRON BINDING CAPACITY 294 UG/DL (250-450)
[2017-10-06 14:56] LABS: VITAMIN B12 LEVEL > 2000 PG/ML (247-911)
== END ==
LOC: M LAB REF 13:36
DX: R53.83 Other fatigue (principal); D64.9 Anemia, unspecified

== ENCOUNTER → 2019-04-15 | Outpatient (REF) | payer OTHER ==
[~2019-04-15] MED LIST changes: +K-TA10TA PO; +LISI-538 PO; +LISI10TA4 PO; +ONDA4TAB5 PO; +STRA10CA PO
[2019-04-18 00:06] LABS: Lyme Disease IgG/IgM Antibodie <0.91 ISR (0.00-0.90); Lyme Disease IgM Ab Quantitati <0.80 index (0.00-0.79)
== END ==
LOC: M LAB REF 16:59
PROVIDERS: ATTEND Internal Medicine
DX: Z11.59 Encounter for screening for other viral diseases (principal)

== ENCOUNTER → 2019-06-04 | Outpatient (CLI) | payer OTHER ==
[2019-06-04 15:21] LABS: BASO # 0.1 10^3/uL (0.0-0.2); BASO % 0.7 % (0.0-1.0); EOS # 0.3 10^3/uL (0.0-0.5); EOS % 3.8 % (0.0-3.0); HEMATOCRIT 41.1 % (36.0-47.0); LYMPH # 2.1 10^3/uL (1.5-5.0); LYMPH % 23.7 % (24.0-44.0); MEAN CORPUSCULAR HEMOGLOBIN 30.5 pg (27.0-33.0); MEAN CORPUSCULAR HGB CONC 34.1 g/dl (32.0-36.5); MEAN CORPUSCULAR VOLUME 89.5 fl (80.0-96.0); MONO # 0.7 10^3/uL (0.0-0.8); MONO % 7.5 % (0.0-5.0); NEUTROPHILS # 5.6 10^3/uL (1.5-8.5); NEUTROPHILS % 64.1 % (36.0-66.0); PLATELET COUNT, AUTOMATED 307 10^3/uL (150-450); RED BLOOD COUNT 4.59 10^6/uL (4.00-5.40); WHITE BLOOD COUNT 8.8 10^3/uL (4.0-10.0)
[2019-06-04 16:10] LABS: ERYTHROCYTE SEDIMENTATION RATE 28 mm/hr (0-20)
[2019-06-07 14:26] LABS: B. HENSELAE IgG (CAT SCRATCH) Negative titer (Neg:<1:320); B. HENSELAE IgM (CAT SCRATCH) Negative titer (Neg:<1:100); B. QUINTANA IgG (CAT SCRATCH) Negative titer (Neg:<1:320); B. QUINTANA IgM (CAT SCRATCH) Negative titer (Neg:<1:100); TOXOPLASMA IgG ABY <3.0 IU/mL (0.0-7.1)
== END ==
LOC: M LAB 14:47
PROVIDERS: ATTEND Ophthalmology Retina Specialist
DX: H44.112 Panuveitis, left eye (principal)

== ENCOUNTER → 2021-01-18 | Outpatient (REF) | payer OTHER ==
[~2021-01-18] MED LIST changes: -LISI-538 PO; +LISI10TA22 PO; -LISI10TA4 PO; +LISI20TA33 PO; +ONDA-83 PO; -ONDA4TAB5 PO
[2021-01-18 15:57] LABS: HEPATITIS B SURFACE ANTIGEN NEGATIVE (NEGATIVE)
== END ==
LOC: M LAB REF 11:24
PROVIDERS: ATTEND Internal Medicine
DX: H30.92 Unspecified chorioretinal inflammation, left eye (principal); G51.8 Other disorders of facial nerve